=== PATIENT | male | born 1965 | race African-American/Black ===

== ENCOUNTER 2023-01-16 20:32 | Emergency (ER) | payer MEDICAID, OTHER ==
[~2023-01-16] VITALS: Ht 190.5 cm; Wt 114.0 kg
[2023-01-16 20:52] VITALS: BP 138/80
== END 2023-01-16 22:30 | disposition home or self-care (01) ==
LOC: ER 20:32
DX: S39.011A Strain of muscle, fascia and tendon of abdomen, initial encounter (principal); F15.10 Other stimulant abuse, uncomplicated; X58.XXXA Exposure to other specified factors, initial encounter; Y93.89 Activity, other specified; Y92.89 Other specified places as the place of occurrence of the external cause; Y99.8 Other external cause status; E78.00 Pure hypercholesterolemia, unspecified; I10 Essential (primary) hypertension; F20.9 Schizophrenia, unspecified
CPT/HCPCS: 99283

== ENCOUNTER 2024-01-16 14:21 | Emergency (ER) | payer MEDICAID ==
[~2024-01-16] VITALS: Ht 188 cm; Wt 143.0 kg
[2024-01-16 14:32] VITALS: O2SAT 99
[2024-01-16] MEDS ORDERED: ASPIRIN (14:32)
[2024-01-16] MEDS ORDERED: METFORMIN (14:32)
[2024-01-16] MEDS ORDERED: HYDROCODONE/ACETAMINOPHEN 5/325MG TABLET PO ONE (14:45)
[2024-01-16] MEDS ORDERED: MIDAZOLAM HCL 2 MG/2 ML VIAL IM ONE (15:15)
[2024-01-16 15:44] LABS: BASOPHILS % 0.7 % (0.0-2.0); EOSINOPHILS % 0.8 % (0.0-5.0); HEMOGLOBIN. 13.6 g/dL (14.0-18.0); LYMPHOCYTES % 18.5 % (20.0-50.0); MEAN CORPUSCULAR HEMOGLOBIN 27.2 pg (28.0-32.0); MEAN CORPUSCULAR HGB CONC 33.3 g/dL (31.0-37.0); MEAN CORPUSCULAR VOLUME 81.6 fL (80.0-94.0); MEAN PLATELET VOLUME 7.5 fl (7.4-10.4); PLATELET 236 x1000/uL (130-400); RED BLOOD CELL COUNT 5.02 mill/uL (4.7-6.1); RED CELL DISTRIBUTION WIDTH 14.8 % (11.6-14.6); WHITE BLOOD COUNT 11.7 x1000/uL (4.5-11.0)
[2024-01-16 15:49] LABS: CARBON DIOXIDE 26 mEq/L (21-32); CHLORIDE 108 mEq/L (98-107); POTASSIUM 3.8 mEq/L (3.5-5.1); SODIUM 140 mEq/L (136-145)
[2024-01-16 15:50] LABS: CALCIUM 9.4 mg/dL (8.7-10.4)
[2024-01-16 15:54] LABS: CREATININE 1.2 mg/dL (0.6-1.3); GLUCOSE 111 mg/dL (70-105)
[2024-01-16 15:55] LABS: UREA NITROGEN BLOOD 13 mg/dL (9-23)
[2024-01-16 15:56] LABS: ALANINE AMINOTRANSFERASE 22 IU/L (10-49); ASPARTATE AMINOTRANSFERASE 33 IU/L (<34)
[2024-01-16 15:57] LABS: ALBUMIN 4.4 g/dL (3.2-4.8); BILIRUBIN TOTAL 0.7 mg/dL (0.1-1.0); PROTEIN TOTAL 7.3 g/dL (6.0-8.3)
[2024-01-16] MEDS ORDERED: MIDAZOLAM HCL 2 MG/2 ML VIAL IM NR (16:45)
[2024-01-16] MEDS: HYDROCODONE/ACETAMINOPHEN 5/325MG TABLET PO NR (17:09)
[2024-01-16 19:10] VITALS: BP 142/78; PULSE 89; RESP 16; TEMP 98.1
== END 2024-01-16 19:11 | disposition home or self-care (01) ==
LOC: ER 14:21
DX: S09.90XA Unspecified injury of head, initial encounter (principal); F10.229 Alcohol dependence with intoxication, unspecified; E78.00 Pure hypercholesterolemia, unspecified; I10 Essential (primary) hypertension; F20.9 Schizophrenia, unspecified; F15.10 Other stimulant abuse, uncomplicated; W18.39XA Other fall on same level, initial encounter; Y93.89 Activity, other specified; Y92.89 Other specified places as the place of occurrence of the external cause; Y99.8 Other external cause status; Y90.9 Presence of alcohol in blood, level not specified
CPT/HCPCS: 36415; 71045; 71250; 74176; 80053; 85025; 99284

== ENCOUNTER 2024-03-23 04:42 | Emergency (ER) | payer MEDICAID ==
[~2024-03-23] VITALS: Ht 188 cm; Wt 110.0 kg
[~2024-03-23 04:42] MED LIST: ASPIRIN; METFORMIN
[2024-03-23 04:52] VITALS: O2SAT 100
[2024-03-23 06:23] LABS: BASOPHILS % 0.7 % (0.0-2.0); EOSINOPHILS % 1.2 % (0.0-5.0); HEMATOCRIT. 45.4 % (42.0-52.0); HEMOGLOBIN. 14.8 g/dL (14.0-18.0); LYMPHOCYTES % 14.3 % (20.0-50.0); MEAN CORPUSCULAR HEMOGLOBIN 27.2 pg (28.0-32.0); MEAN CORPUSCULAR HGB CONC 32.5 g/dL (31.0-37.0); MEAN CORPUSCULAR VOLUME 83.5 fL (80.0-94.0); MEAN PLATELET VOLUME 7.9 fl (7.4-10.4); NEUTROPHILS % 75.8 % (40.0-76.0); PLATELET 240 x1000/uL (130-400); RED BLOOD CELL COUNT 5.44 mill/uL (4.7-6.1); RED CELL DISTRIBUTION WIDTH 14.7 % (11.6-14.6); WHITE BLOOD COUNT 14.9 x1000/uL (4.5-11.0)
[2024-03-23] MEDS: SODIUM CHLORIDE 0.9% 1,000 ML IV ONE (06:30)
[2024-03-23] MEDS: KETOROLAC 30MG/ML VIAL IV STA (06:30)
[2024-03-23 06:33] LABS: CHLORIDE 109 mEq/L (98-107); SODIUM 142 mEq/L (136-145)
[2024-03-23 06:34] LABS: CARBON DIOXIDE 27 mEq/L (21-32)
[2024-03-23 06:35] LABS: CALCIUM 8.8 mg/dL (8.7-10.4)
[2024-03-23 06:39] LABS: CREATININE 1.2 mg/dL (0.6-1.3); GLUCOSE 159 mg/dL (70-105); UREA NITROGEN BLOOD 11 mg/dL (9-23)
[2024-03-23] MEDS ORDERED: CLINDAMYCIN 600 MG in DEXTROSE 5% WATER 50 ML IV ONE (08:45)
[2024-03-23] MEDS: CLINDAMYCIN 600MG PREMIX 50 ML IV NR (09:13)
[2024-03-23] MEDS: HYDRALAZINE 20MG/ML VIAL IV ONE (12:44)
[2024-03-23] MEDS ORDERED: IOHEXOL-300 100 ML BOTTLE ONE (15:16)
[2024-03-23] MEDS: MORPHINE SULFATE 2 MG/ML INJ (NOT FOR IM USE) IV ONE (15:22)
[2024-03-23] MEDS: ONDANSETRON HCL 4MG/2ML INJ IV ONE (15:23)
[2024-03-23 16:03] VITALS: BP 151/90; PULSE 95; RESP 16; TEMP 98.1
== END 2024-03-23 16:12 | disposition short-term general hospital (02) ==
LOC: ER 04:42 → CANBEDREQ 10:54 → ER 16:12
DX: J39.1 Other abscess of pharynx (principal); F15.10 Other stimulant abuse, uncomplicated; I10 Essential (primary) hypertension
CPT/HCPCS: 99285; 96374; 70491; 96375; 80048; 85025; 36415; Q9967; J0360; J1885; J2405; J2270; J3490; J7030; J7060

== ENCOUNTER 2025-03-26 16:08 | Emergency (ER) | payer MEDICAID, OTHER ==
[~2025-03-26] VITALS: Ht 188 cm; Wt 114.0 kg
[2025-03-26 16:12] VITALS: O2SAT 97
[2025-03-26] MEDS ORDERED: LIDOCAINE HCL 1% 20ML VIAL INFIL ONE (16:45)
[2025-03-26] MEDS ORDERED: IBUPROFEN 600MG TABLET PO ONE (18:15)
[2025-03-26] MEDS: TETANUS, DIPHTHERIA, PERTUSSIS VAC/PF 0.5ML (>10YR OLD) IM ONE (18:24)
[2025-03-26] MEDS: LIDOCAINE HCL 1% 20ML VIAL INFIL SCH (20:15)
[2025-03-26] MEDS: IBUPROFEN 600MG TABLET PO SCH (20:21)
[2025-03-26] MEDS ORDERED: IBUP-2029 MT (20:31)
[2025-03-26] MEDS ORDERED: LIDO-116 TOP (20:31)
[2025-03-26 20:43] VITALS: BP 137/92; PULSE 92; RESP 18; TEMP 37; O2SAT 98
== END 2025-03-26 22:43 | disposition home or self-care (01) ==
LOC: ER 16:08
DX: S01.112A Laceration without foreign body of left eyelid and periocular area, initial encounter (principal); F10.129 Alcohol abuse with intoxication, unspecified; E11.9 Type 2 diabetes mellitus without complications; I10 Essential (primary) hypertension; F15.90 Other stimulant use, unspecified, uncomplicated; Z79.899 Other long term (current) drug therapy; V19.9XXA Pedal cyclist (driver) (passenger) injured in unspecified traffic accident, initial encounter; Y93.55 Activity, bike riding; Y92.89 Other specified places as the place of occurrence of the external cause; Y99.8 Other external cause status; Y90.9 Presence of alcohol in blood, level not specified
CPT/HCPCS: 73030; 70450; 70486; 90715; 12011; 90471; 99285; Z7610 ×3; J2003